=== PATIENT | male | born 1955 | race Caucasian/White ===

== ENCOUNTER 2020-04-25 08:04 | Outpatient (CLI) | payer BC, SELFPAY ==
--- NOTE | ~2020-04-25 | US_ITS ---
EXAMINATION: US art doppler w press LE BI DATE: 04/25/2020 08:57 INDICATION: Right foot pain TECHNIQUE: Segmental pressures and plethysmographic and Doppler waveforms of the brachial and lower e xtremity arteries were obtained. COMPARISON: None. FINDINGS: Right and left brachial artery pressures of 162 mm Hg and 178 mm Hg, respectively, are concordant (no rmal difference <= 30 mmHg). The right and left high-thigh pressure indices were unable to be obtaine d due to inability to occlude the vessels. The right ankle-brachial index (NANO) was unable to be obtained due to inability to occlude the vessel s at the right ankle (normal >= 0.9-1). The right great toe-brachial index (TBI) is 0.56 (normal >= 0 .6-0.8). The right lower extremity segmental pressure gradients were unable to be obtained due to fazal bility to occlude the vessels throughout the right lower limb (normal gradients <= 20-30 mmHg between adjacent levels on the same leg or the same levels on the two legs). Arterial waveforms are triphasi c at the right common femoral, superficial and popliteal arteries and biphasic at the right posterior tibial and dorsalis pedis arteries with brisk systolic upstrokes throughout. The left NANO is at least 1.19 inability to occlude the left dorsalis pedis artery or more proximal ar teries also precluding assessment for segmental pressure gradients. The left TBI is 1.79. Arterial w aveforms are triphasic at the left common femoral, superficial and popliteal arteries and biphasic at the left posterior tibial and dorsalis pedis arteries with brisk systolic upstrokes throughout. IMPRESSION: 1. Arterial occlusive disease to the right lower limb with mildly decreased right TBI. 2. No significant arterial occlusive disease to the left lower limb with normal left NANO and TBI. Reviewed, dictated and finalized at location A. T MANAGER IMPRESSION: 1. Arterial occlusive disease to the right lower limb with mildly decreased rig ht TBI. 2. No significant arterial occlusive disease to the left lower limb with normal left NANO and TBI.
--- NOTE | ~2020-04-25 | XR_ITS ---
EXAMINATION: XR foot RT min 3V DATE: 04/25/2020 08:25 INDICATION: Right foot pain. TECHNIQUE: 4 views of right foot were obtained. COMPARISON: None. FINDINGS: Bone alignment is normal. No acute fracture. There are old healed fractures of some of the proximal phalanges. There is mild osteoarthritis of first metatarsophalangeal joint, third proximal i nterphalangeal joint, and talonavicular joint. There are enthesophytes at the posterior and plantar a spects of calcaneal tuberosity. IMPRESSION: 1. Mild polyarticular osteoarthritis. Reviewed, dictated and finalized at location B. NATOR MAKER
== END 2020-04-25 08:05 | disposition home or self-care (01) ==
LOC: ANHIMG 08:10
PROVIDERS: PCP Internal Medicine; Visit Provider Internal Medicine
DX: M79.671 Pain in right foot (principal); M19.071 Primary osteoarthritis, right ankle and foot
CPT/HCPCS: 73630; 93923

== ENCOUNTER 2020-05-24 07:12 | Outpatient (CLI) | payer BC, SELFPAY ==
--- NOTE | ~2020-05-24 | NM_ITS ---
EXAMINATION: NM elliot stress w perfusion DATE: 05/24/2020 10:30 INDICATION: Dyspnea on exertion TECHNIQUE: Rest images were obtained following intravenous administration of 10.6 mCi Tc99m tetrofosm in (Myoview). The patient was infused intravenously with Lexiscan (Regadenoson). Then, 30.5 mCi Tc99m tetrofosmin (Myoview) was administered intravenously, and stress images were obtained in supine posi tion. Additional stress images were obtained in prone position. Data was reconstructed into short axi s and horizontal and vertical long axis SPECT images. Gated SPECT images were also obtained. COMPARISON: None. FINDINGS: There is a fixed perfusion defect, moderate severity at the apex and mild on the inferoapic al and mid inferior segments consistent with infarct. No reversible ischemia. There is left ventricu lar enlargement with calculated end-diastolic volume of 217 mL. There is global hypokinesis with mild to moderately decreased left ventricular ejection fraction which measures 35%. IMPRESSION: 1. Nonreversible perfusion defect moderate severity at the apex and mild at the apical inferior and m id inferior segments. No reversible ischemia. 2. Left ventricular enlargement with mild to moderately decreased left ventricular ejection fraction measuring 35%. Reviewed, dictated and finalized at location A. TH SCIENCE WRITER IMPRESSION: 1. Nonreversible perfusion defect moderate severity at the apex and mild at the apical inferior and mid inferior segments. No reversible ischemia. 2. Left ventricular enlargement with mild to moderately decreased left ventricu lar ejection fraction measuring 35%.
--- NOTE | 2020-05-24 07:56 | EST_ITS ---
Patient Info Name: Karlo Hilario Age: 64 years : 1955 Gender: Male Ht: 72 in Wt: 235 lbs BSA: 2.36 m2 HR: 71 bpm BP: 168 / 86 mmHg Exam Date: 05/24/2020 8:41 AM Exam Location: [facility] Stress Patient Status: Outpatient Admit Date: 05/24/2020 Staff Ordering Physician: Bryan Acharya DO Attending Provider: Bryan Acharya DO Exercise Technologist: Kailey Musa RDCS Exercise Physician: Bryan Acharya DO Exam Type: CA stress elliot w NM Study Info Indications R06.00 - Dyspnea, unspecified A regadenoson stress test was performed. Summary 1. 1. Negative lexiscan stress test for ischemic ST changes by ECG criteria. 2. 2. Baseline hypertension. 3. 3. Nuclear scan to follow and will be reported separately. Please correlate with it. 4. 4. Patient informed of the above results. Protocol: Lexiscan Stress ECG Details Stage: REST Duration (min): 0 min : 17 sec HR (bpm): --- SBP (mmHg): --- DBP (mmHg): --- Stage: REST Duration (min): 2 min : 58 sec HR (bpm): 71 SBP (mmHg): 168 DBP (mmHg): 85 Stage: REST Duration (min): 10 min : 43 sec HR (bpm): 72 SBP (mmHg): 168 DBP (mmHg): 85 Stage: STAGE 1 Duration (min): 1 min : 0 sec HR (bpm): 94 SBP (mmHg): 183 DBP (mmHg): 70 Stage: RECOVERY Duration (min): 1 min : 0 sec HR (bpm): 101 SBP (mmHg): 183 DBP (mmHg): 70 Stage: RECOVERY Duration (min): 2 min : 0 sec HR (bpm): 98 SBP (mmHg): 195 DBP (mmHg): 88 Stage: RECOVERY Duration (min): 3 min : 0 sec HR (bpm): 93 SBP (mmHg): 184 DBP (mmHg): 83 Stage: RECOVERY Duration (min): 3 min : 18 sec HR (bpm): 93 SBP (mmHg): 184 DBP (mmHg): 83 Rest HR: 72 bpm Peak HR: 101 bpm Rest Sys BP: 168 mmHg Peak Sys BP: 195 mmHg Max Pred HR: 157 bpm % Max Pred HR: 64 % Target HR: 133 bpm Max RPP: 19,695 bpm*mmHg Termination Reason: Completed protocol Total Time: 1 min : 0 sec Rest Dawkins BP: 85 mmHg Peak Dawkins BP: 88 mmHg Total Dose: 0.4 mg Resting ECG Sinus rhythm, first degree AV block, LAFB. Stress ECG No ST changes. Arrhythmias None. Report Signatures
== END 2020-05-24 07:13 | disposition home or self-care (01) ==
LOC: ANHCARD 07:15
PROVIDERS: PCP Internal Medicine; Visit Provider Internal Medicine Cardiovascular Disease
DX: R06.00 Dyspnea, unspecified (principal)
CPT/HCPCS: 78452; 93017; A9502; J2785

== ENCOUNTER 2020-05-27 07:21 | Outpatient (CLI) | payer BC, SELFPAY ==
--- NOTE | 2020-05-27 07:41 | ECHO_ITS ---
Patient Info Name: Karlo Hilario Age: 64 years : 1955 Gender: Male Ht: 72 in Wt: 235 lbs BSA: 2.36 m2 HR: 73 bpm BP: 168 / 95 mmHg Technical Quality: Good Exam Date: 05/27/2020 8:19 AM Exam Location: [facility] Patient Status: Outpatient Admit Date: 05/27/2020 Staff Ordering Physician: Bryan Acharya DO Planer Setter: Christo Glaser RDCS, RT Attending Provider: Bryan Acharya DO Referring Physician: Marck OTTO; Exam Type: CA echo doppler color flow Study Info Indications R94.31 - Abnormal electrocardiogram ECG EKG Z01.818 - Encounter for other preprocedural examination Complete two-dimensional, color flow and Doppler transthoracic echocardiogram is performed. Strain analysis performed. Summary 1. Complete two-dimensional, color flow and Doppler transthoracic echocardiogram is performed. 2. Left ventricular chamber dimension is moderately enlarged. 3. Left ventricular systolic function is moderately reduced, estimated at 35-40%. 4. There is mildly increased left ventricular wall thickness. 5. The left ventricular diastolic function is grade I diastolic dysfunction. 6. E/e' 8 is minimally elevated. 7. Global longitudinal strain is abnormal at -12.1%. 8. Left atrial chamber dimension is mildly enlarged. 9. There is mild aortic valve regurgitation. 10. The mitral valve has mildly thickened leaflets. 11. There is moderate mitral valve regurgitation. 12. There is trace tricuspid valve regurgitation. 13. There is trace pulmonic regurgitation. 14. Dilated inferior vena cava with >50% collapse upon inspiration consistent with elevated right atrial pressure, 10 mmHg. Left Ventricle E/e' 8 is minimally elevated. Global longitudinal strain is abnormal at -12.1%. Left ventricular chamber dimension is moderately enlarged. Left ventricular systolic function is moderately reduced, estimated at 35-40%. There is mildly increased left ventricular wall thickness. The left ventricular diastolic function is grade I diastolic dysfunction. Right Ventricle Right ventricular chamber dimension is normal. Right ventricular systolic function is normal. Left Atria Left atrial chamber dimension is mildly enlarged. Right Atria Right atrial chamber dimension is normal. Aortic Valve The aortic valve is trileaflet. There is no aortic valve stenosis. There is mild aortic valve regurgitation. Pulmonic Valve There is trace pulmonic regurgitation. Mitral Valve The mitral valve has mildly thickened leaflets. There is no mitral valve stenosis. There is moderate mitral valve regurgitation. Tricuspid Valve There is trace tricuspid valve regurgitation. RVSP is not calculated due to an inadequate TR jet. Pericardium/Pleural There is no pericardial effusion. Inferior Vena Cava Dilated inferior vena cava with >50% collapse upon inspiration consistent with elevated right atrial pressure, 10 mmHg. Aorta The aortic root size at the sinus of Valsalva is normal. Left Ventricular Outflow Tract Name Value Normal LVOT 2D LVOT Diameter 2.1 cm LVOT Doppler LVOT Peak Gradient 4 mmHg
== END 2020-05-27 07:22 | disposition home or self-care (01) ==
PROVIDERS: PCP Internal Medicine; Visit Provider Internal Medicine Cardiovascular Disease
DX: R06.00 Dyspnea, unspecified (principal); I34.1 Nonrheumatic mitral (valve) prolapse
CPT/HCPCS: 93306

== ENCOUNTER 2020-10-28 13:31 | Outpatient (CLI) | payer BC, SELFPAY ==
--- NOTE | 2020-10-28 13:47 | ECHO_ITS ---
Patient Info Name: Karlo Hilario Age: 65 years : 1955 Gender: Male Ht: 72 in Wt: 240 lbs BSA: 2.38 m2 HR: 70 bpm BP: 142 / 70 mmHg Technical Quality: Good Exam Date: 10/28/2020 2:06 PM Exam Location: [facility] Patient Status: Outpatient Admit Date: 10/28/2020 Staff Ordering Physician: Bryan Acharya DO Prescription Benefit Specialist: Cecy Mendoza RDCS Attending Provider: Bryan Acharya DO Referring Physician: Marck OTTO; Exam Type: CA echo doppler color flow Study Info Indications - chf systolic heart failure Complete two-dimensional, color flow and Doppler transthoracic echocardiogram is performed. Summary 1. Complete two-dimensional, color flow and Doppler transthoracic echocardiogram is performed. 2. Left ventricular chamber dimension is normal. 3. Left ventricular systolic function is mildly reduced, estimated at 45-50%. 4. There is mildly increased left ventricular wall thickness. 5. The left ventricular diastolic function is grade I diastolic dysfunction. 6. E/e' 15 is elevated. 7. Global longitudinal strain is abnormal at -15.1%. 8. Left atrial chamber dimension is moderately enlarged. 9. Right atrial chamber dimension is mildly enlarged. 10. There is trace aortic valve regurgitation. 11. There is mild mitral valve regurgitation. 12. No pulmonary hypertension, estimated pulmonary arterial systolic pressure is 28 mmHg. 13. There is trace pulmonic regurgitation. Left Ventricle E/e' 15 is elevated. Global longitudinal strain is abnormal at -15.1%. Left ventricular chamber dimension is normal. Left ventricular systolic function is mildly reduced, estimated at 45-50%. There is mildly increased left ventricular wall thickness. The left ventricular diastolic function is grade I diastolic dysfunction. Right Ventricle Right ventricular chamber dimension is normal. Right ventricular systolic function is normal. Left Atria Left atrial chamber dimension is moderately enlarged. Right Atria Right atrial chamber dimension is mildly enlarged. Aortic Valve The aortic valve is trileaflet. There is no aortic valve stenosis. There is trace aortic valve regurgitation. Pulmonic Valve There is trace pulmonic regurgitation. Mitral Valve There is no mitral valve stenosis. There is mild mitral valve regurgitation. Tricuspid Valve There is no tricuspid valve regurgitation. No pulmonary hypertension, estimated pulmonary arterial systolic pressure is 28 mmHg. Pericardium/Pleural There is no pericardial effusion. Inferior Vena Cava Dilated inferior vena cava with >50% collapse upon inspiration consistent with normal right atrial pressure, 5 mmHg. Aorta The aortic root size at the sinus of Valsalva is normal. Left Ventricular Outflow Tract Name Value Normal LVOT 2D LVOT Diameter 2.1 cm LVOT Doppler LVOT Peak Gradient 4 mmHg LVOT Mean Gradient 3 mmHg LVOT VTI 22 cm LVOT VTI/AV VTI Ratio 0.6 LVOT Stroke Volume 78 ml
== END 2020-10-28 13:32 | disposition home or self-care (01) ==
LOC: ANHCARD 13:35
PROVIDERS: PCP Family Medicine; Visit Provider Internal Medicine Cardiovascular Disease
DX: I50.20 Unspecified systolic (congestive) heart failure (principal); I34.0 Nonrheumatic mitral (valve) insufficiency
CPT/HCPCS: 93306

== ENCOUNTER 2021-05-26 07:38 | Outpatient (CLI) | payer OTHER, SELFPAY ==
--- NOTE | 2021-05-26 07:49 | ECHO_ITS ---
Patient Info Name: Karlo Hilario Age: 65 years : 1955 Gender: Male Ht: 72 in Wt: 238 lbs BSA: 2.37 m2 HR: 75 bpm BP: 155 / 80 mmHg Heart Rhythm: Sinus Rhythm Technical Quality: Good Exam Date: 05/26/2021 8:03 AM Exam Location: [facility] Pulmonary Patient Status: Outpatient Admit Date: 05/26/2021 Staff Ordering Physician: Bryan Acharya DO Windows Vmware Administrator: Kailey Musa RDCS Attending Provider: Bryan Acharya DO Referring Physician: Marck OTTO; Exam Type: CA echo doppler color flow Study Info Indications I50.20 - Unspecified systolic (congestive) heart failure Complete two-dimensional, color flow and Doppler transthoracic echocardiogram is performed. Strain analysis performed. Summary 1. Complete two-dimensional, color flow and Doppler transthoracic echocardiogram is performed. 2. Left ventricular chamber dimension is mildly enlarged. 3. Left ventricular systolic function is mildly reduced, estimated at 45-50%. 4. There is mildly increased left ventricular wall thickness. 5. Left ventricular septal wall motion is abnormal with septal motion related to bundle branch block. 6. The left ventricular diastolic function is grade I diastolic dysfunction. 7. E/e' 15 is elevated. 8. Global longitudinal strain is abnormal at -12.1%. 9. Left atrial chamber dimension is mildly enlarged. 10. There is mild aortic valve regurgitation. 11. There is trace mitral valve regurgitation. 12. There is trace pulmonic regurgitation. Left Ventricle E/e' 15 is elevated. Global longitudinal strain is abnormal at -12.1%. Left ventricular chamber dimension is mildly enlarged. Left ventricular systolic function is mildly reduced, estimated at 45-50%. There is mildly increased left ventricular wall thickness. Left ventricular septal wall motion is abnormal with septal motion related to bundle branch block. The left ventricular diastolic function is grade I diastolic dysfunction. Right Ventricle Right ventricular systolic function is normal and with normal TAPSE 2.4 cm. Right ventricular chamber dimension is normal. Left Atria Left atrial chamber dimension is mildly enlarged. Right Atria Right atrial chamber dimension is normal. Aortic Valve The aortic valve is trileaflet. There is no aortic valve stenosis. There is mild aortic valve regurgitation. Pulmonic Valve There is trace pulmonic regurgitation. Mitral Valve There is no mitral valve stenosis. There is trace mitral valve regurgitation. Tricuspid Valve There is no tricuspid valve regurgitation. Pericardium/Pleural There is no pericardial effusion. Inferior Vena Cava Normal inferior vena cava with >50% collapse upon inspiration consistent with normal right atrial pressure, 5 mmHg. Aorta The aortic root size at the sinus of Valsalva is normal. Left Ventricular Outflow Tract Name Value Normal LVOT 2D LVOT Diameter 2.3 cm LVOT Doppler LVOT Peak Gradient 3 mmHg LVOT Mean Gradient 1 mmHg LVOT VTI 16 cm LVOT VTI/AV VTI Ratio
== END 2021-05-26 07:39 | disposition home or self-care (01) ==
PROVIDERS: PCP Family Medicine; Visit Provider Internal Medicine Cardiovascular Disease
DX: I50.20 Unspecified systolic (congestive) heart failure (principal); I35.1 Nonrheumatic aortic (valve) insufficiency
CPT/HCPCS: 93306

== ENCOUNTER 2021-07-24 09:15 | Outpatient (RCR) | payer OTHER, SELFPAY ==
[2021-06-29 07:49] VITALS: BMI 31.4
[2021-06-29 14:16] VITALS: BMI 31.4
[2021-06-29 14:17] VITALS: BMI 31.4
== END 2021-09-18 09:17 | disposition home or self-care (01) ==
LOC: ANHDMC 09:15
PROVIDERS: PCP Family Medicine; Visit Provider Family Medicine
DX: E11.9 Type 2 diabetes mellitus without complications (principal); Z71.3 Dietary counseling and surveillance; Z71.89 Other specified counseling
CPT/HCPCS: 97802; G0108

== ENCOUNTER 2021-12-13 01:41 | Day surgery (SDC) | payer OTHER, SELFPAY ==
[2021-11-30 11:53] VITALS: BMI 32.5
[2021-12-13 06:20] VITALS: BP 152/82; PULSE 76; RESP 20; TEMP 36.3; O2SAT 99
[2021-12-13] MEDS: LACTATED RINGERS 1,000 ML 150 ML IV CONT (06:30)
[2021-12-13 06:34] LABS: Glucose Point of Care 137 mg/dl (65-105)
--- NOTE | 2021-12-13 07:20 | WPDANESEPPF ---
Anes - Initial Pre Proc Eval Procedure: Operation Date: 12/13/21 07:30 Proposed Procedures p Screening Colonoscopy - Yahir lAexander MD Date/Time: 12/13/21 07:20 Surgeon: Yahir Alexander MD Pre Op Diagnosis: hx of colon polyps Patient Data Age: 66 Gender: M Height: 1.83 m Weight: 101.5 kg Last Vital Signs Temp 97.4 F L 12/13/21 06:20 Pulse 76 12/13/21 06:20 Resp 20 12/13/21 06:20 BP 152/82 H 12/13/21 06:20 Pulse Ox 99 12/13/21 06:20 O2 Del Method Room Air 12/13/21 06:20 Allergies Allergy/AdvReac Type Severity Reaction Status Date / Time No Known Allergies Allergy Verified 12/13/21 06:19 Home Medications Medication Instructions Recorded Confirmed Type omega-3 fatty acids 1,000 mg 1,000 mg PO BID 05/31/20 11/30/21 History capsule (Fish Oil Concentrate) blood sugar diagnostic (Contour See Rx Instructions .Route 05/05/21 11/30/21 Rx Next Test Strips) .COMPLEX #60 ea lisinopril 5 mg tablet See Rx Instructions .Route 06/21/21 11/30/21 Rx .COMPLEX #30 tabs carvedilol 12.5 mg tablet See Rx Instructions .Route 07/04/21 11/30/21 Rx .COMPLEX #60 tabs rosuvastatin 20 mg tablet See Rx Instructions .Route 08/04/21 11/30/21 Rx .COMPLEX #90 tabs semaglutide 0.25 mg or 0.5 mg (2 See Rx Instructions .Route 09/06/21 11/30/21 Rx mg/1.5 mL) subcutaneous pen .COMPLEX #2 mL injector (Ozempic) glimepiride 1 mg tablet 1 mg PO DAILY 11/30/21 11/30/21 History Laboratory Tests 12/13/21 06:24 POC Capillary Glucose 137 mg/dl H mg/dl (65-105) Patient hx anesthesia problems: none Family hx anesthesia problems: none Results Review: All pre-operative results and documents have been reviewed as part of the pre-operative evaluation. [facility] Past Medical History Medical History CAD (coronary artery disease) Dyslipidemia Peripheral vascular disease Personal history of malignant neoplasm of prostate Systolic heart failure Type 2 diabetes mellitus without complications Family History Family History Father Heart disease Mother Diabetes mellitus Hypertension Cerebrovascular accident Other Family history of coronary artery disease Malignant neoplasm of prostate Social History Social History Smoking status: Former smoker Second hand tobacco smoke exposure: No Smoking end date: 04/08/97 Alcohol intake: current Drinks per week: 2 Alcohol use details: beer Substance use: never Substance use type: does not use Living arrangements: with family Gender identity (if verbalized by the patient): Male Spiritual care concerns: No Agree to blood products: Yes Anes - Eval Final PreProcedure Day of Procedure 12/13/21 07:20 Patient weight: obese Heart: regular rate and rhythm Lungs: clear to auscultation Airway: Mallampati scale class II Neurological: alert and oriented Last oral intake: >/= 8 hours ASA classification: III Emergent: no Anesthetic plan: proceed Anesthesia type and monitoring: general GIVS Results Review: All pre-operative results and documents have been reviewed as part of the pre-operative evaluation. Informed Consent: The patient's anesthetic plan and its attendant risks and benefits were discussed with the patient/family/POA. Questions were solicited and answers provided to the satisfaction of the patient/family/POA.
--- NOTE | 2021-12-13 07:27 | PM.HPGS ---
History of Present Illness History of Present Illness Consent: Risks, benefits, and alternatives have been discussed and questions answered. Patient agrees to proceed with procedure. Chief complaint: hx of colon polyps Narrative: Karlo Hilario is a 66 year old male here for screening colonoscopy Review of Systems Constitutional: Constitutional: Denies headache(s) and Denies weakness Eyes: Eyes: Denies blurry vision ENT: Reports Normal hearing present, Denies headache(s) and Denies neck pain Cardiovascular: Cardiovascular: Denies chest pain and Denies dyspnea Respiratory: Respiratory: Denies dyspnea Gastrointestinal: Gastrointestinal: Reports no additional gastrointestinal complaints Genitourinary: Genitourinary: Denies dysuria Musculoskeletal: Musculoskeletal: Denies neck pain Integumentary/Breasts: Skin/Breast: Denies dry skin Neurologic: Reports Normal hearing present, Denies headache(s) and Denies weakness Psychiatric: Psychiatric: Denies anxiety Endocrine: Endocrine: Denies change in body appearance Hematologic/Lymphatic: Hematologic/Lymphatic: Denies easy bleeding Allergic/Immunologic: Allergic/Immunologic: Denies urticaria PMFSH Past Medical History Medical History (Updated 12/13/21 @ 07:27 by Yahir Alexander MD) CAD (coronary artery disease) Colon cancer screening Dyslipidemia Peripheral vascular disease Personal history of malignant neoplasm of prostate Systolic heart failure Type 2 diabetes mellitus without complications Family History Family History Father Heart disease Mother Diabetes mellitus Hypertension Cerebrovascular accident Other Family history of coronary artery disease Malignant neoplasm of prostate Social History Social History Smoking status: Former smoker Second hand tobacco smoke exposure: No Smoking end date: 04/08/97 Alcohol intake: current Drinks per week: 2 Alcohol use details: beer Substance use: never Substance use type: does not use Living arrangements: with family Gender identity (if verbalized by the patient): Male Spiritual care concerns: No Agree to blood products: Yes Meds Home Medications and Allergies Home Medications Medication Instructions Recorded Confirmed Type omega-3 fatty acids 1,000 mg 1,000 mg PO BID 05/31/20 11/30/21 History capsule (Fish Oil Concentrate) blood sugar diagnostic (Contour See Rx Instructions .Route 05/05/21 11/30/21 Rx Next Test Strips) .COMPLEX #60 ea lisinopril 5 mg tablet See Rx Instructions .Route 06/21/21 11/30/21 Rx .COMPLEX #30 tabs carvedilol 12.5 mg tablet See Rx Instructions .Route 07/04/21 11/30/21 Rx .COMPLEX #60 tabs rosuvastatin 20 mg tablet See Rx Instructions .Route 08/04/21 11/30/21 Rx .COMPLEX #90 tabs semaglutide 0.25 mg or 0.5 mg (2 See Rx Instructions .Route 09/06/21 11/30/21 Rx mg/1.5 mL) subcutaneous pen .COMPLEX #2 mL injector ([employer]) glimepiride 1 mg tablet 1 mg PO DAILY 11/30/21 11/30/21 History Allergies Allergy/AdvReac Type Severity Reaction Status Date / Time No Known Allergies Allergy Verified 12/13/21 06:19 Vital Signs Vital Signs - 24 hr 12/13/21 06:20 Temperature 97.4 F L Pulse Rate 76 Respiratory Rate 20 Blood Pressure 152/82 H Pulse Oximetry 99 Oxygen Delivery Room Air Exam Const: General: comfortable and no acute distress HENMT: General nose exam: Normal nares present Eyes: General: appearance normal, both eyes and all related structures Neck: Neck: no JVD Resp: Auscultation: clear to auscultation bilaterally Cardio: Rate: regular rate Rhythm: regular rhythm GI: Inspection: non-distended GI Palp: Yes Soft to palpation Skin: General skin exam: normal color Neuro: General: gait normal Speech: normal speech Extrem: General: normal to inspection Psych:
[2021-12-13 07:47] VITALS: BP 149/77; PULSE 65; RESP 17; O2SAT 97
[2021-12-13 07:57] VITALS: BP 131/81; PULSE 72; RESP 21; O2SAT 98
[2021-12-13 08:07] VITALS: BP 142/90; PULSE 64; RESP 20; O2SAT 97
== END 2021-12-13 08:14 | disposition home or self-care (01) ==
PROVIDERS: PCP Family Medicine; Visit Provider Internal Medicine Gastroenterology
PROC: 0DJD8ZZ Inspection of Lower Intestinal Tract, Via Natural or Artificial Opening Endoscopic (ICD-10-PCS; CPT 45378; principal; 2021-12-13 07:30)
DX: Z12.11 Encounter for screening for malignant neoplasm of colon (principal); D12.4 Benign neoplasm of descending colon; K64.8 Other hemorrhoids; I50.22 Chronic systolic (congestive) heart failure; I25.10 Atherosclerotic heart disease of native coronary artery without angina pectoris; E78.5 Hyperlipidemia, unspecified; E11.51 Type 2 diabetes mellitus with diabetic peripheral angiopathy without gangrene; I73.9 Peripheral vascular disease, unspecified; C61 Malignant neoplasm of prostate; Z87.891 Personal history of nicotine dependence
CPT/HCPCS: 45385; 82948; 88305; J2704; J7120

== ENCOUNTER 2023-04-24 13:29 | Outpatient (CLI) | payer OTHER, SELFPAY ==
--- NOTE | 2023-04-24 13:44 | ECHO_ITS ---
Patient Info Name: Karlo Hilario Age: 67 years : 1955 Gender: Male Ht: 72 in Wt: 234 lbs BSA: 2.35 m2 HR: 60 bpm BP: 140 / 82 mmHg Technical Quality: Fair Exam Date: 04/24/2023 1:51 PM Exam Location: Echo Lab Patient Status: Outpatient Admit Date: 04/24/2023 Staff Ordering Physician: Bryan Acharya DO Attending Provider: Bryan Acharya DO Referring Physician: Marck OTTO; Exam Type: CA echo dop color flow w con Study Info Indications - CHF Complete two-dimensional, color flow and Doppler transthoracic echocardiogram is performed. Summary 1. Complete two-dimensional, color flow and Doppler transthoracic echocardiogram is performed. 2. Left ventricular systolic function is mildly globally reduced, estimated at 45-50%. 3. There is mild concentric increased left ventricular wall thickness. 4. The left ventricular diastolic function is grade I diastolic dysfunction. 5. E/e' 9 is minimally elevated. 6. Global longitudinal strain is abnormal at -11.3%. 7. Left atrial chamber dimension is mildly enlarged. 8. There is mild aortic valve sclerosis. 9. There is mild aortic valve regurgitation. 10. There is mild mitral valve regurgitation. 11. There is trace tricuspid valve regurgitation. 12. There is trace pulmonic regurgitation. Left Ventricle E/e' 9 is minimally elevated. Global longitudinal strain is abnormal at -11.3%. Left ventricular systolic function is mildly globally reduced, estimated at 45-50%. There is mild concentric increased left ventricular wall thickness. The left ventricular diastolic function is grade I diastolic dysfunction. Right Ventricle Right ventricular systolic function is normal and with normal TAPSE 2.7 cm. Right ventricular chamber dimension is normal. Left Atria Left atrial chamber dimension is mildly enlarged. Right Atria Right atrial chamber dimension is normal. Aortic Valve The aortic valve is trileaflet. There is mild aortic valve sclerosis. There is no aortic valve stenosis. There is mild aortic valve regurgitation. Pulmonic Valve There is trace pulmonic regurgitation. Mitral Valve There is no mitral valve stenosis. There is mild mitral valve regurgitation. Tricuspid Valve RVSP is not calculated due to an inadequate TR jet. There is trace tricuspid valve regurgitation. Pericardium/Pleural There is no pericardial effusion. Inferior Vena Cava Normal inferior vena cava with >50% collapse upon inspiration consistent with normal right atrial pressure, 5 mmHg. Aorta The aortic root size at the sinus of Valsalva is normal. Left Ventricular Outflow Tract Name Value Normal LVOT 2D LVOT Diameter 1.98 cm LVOT Doppler LVOT Peak Velocity 97.56 cm/s LVOT Peak Gradient 4 mmHg LVOT Mean Gradient 2 mmHg LVOT VTI 18.02 cm LVOT VTI/AV VTI Ratio 0.60 LVOT Stroke Volume 55.52 ml LVOT CO 3.27 l/min LVOT CI 1.39 L/min/m2 Pulmonic Valve Name
== END 2023-04-24 13:30 | disposition home or self-care (01) ==
PROVIDERS: PCP Family Medicine; Visit Provider Internal Medicine Cardiovascular Disease
DX: I50.20 Unspecified systolic (congestive) heart failure (principal); I34.0 Nonrheumatic mitral (valve) insufficiency; I35.1 Nonrheumatic aortic (valve) insufficiency
CPT/HCPCS: 93306

== ENCOUNTER 2025-01-29 22:00 | Emergency (ER) | payer OTHER, SELFPAY ==
--- NOTE | ~2025-01-29 | CT_ITS ---
CT brain wo con HISTORY:syncopal episode COMPARISON: None. TECHNIQUE: Axial images were obtained of the head without intravenous contrast. FINDINGS: No acute intracranial hemorrhage, mass effect or midline shift. No extra-axial fluid collections. The calvarium is intact. Visualized paranasal sinuses and mastoid air cells are clear. IMPRESSION: No acute intracranial hemorrhage or extra axial fluid collections. All CT scans at this facility are performed using low dose modulation techniques as appropriate to perform exam including the following: automated exposure control; use of iterative reconstruction technique; adjustment of the mA and/or kV according to patient size (this includes techniques or standardized protocols for targeted exams where dose is matched to indication/reason for exam). Reviewed, dictated and finalized at location S. IMPRESSION: No acute intracranial hemorrhage or extra axial fluid collections. All CT scans at this facility are performed using low dose modulation techniqu es as appropriate to perform exam including the following: automated exposure c ontrol; use of iterative reconstruction technique; adjustment of the mA and/or kV according to patient size (this includes techniques or standardized protocol s for targeted exams where dose is matched to indication/reason for exam).
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
--- NOTE | ~2025-01-29 | XR_ITS ---
XR chest 2V HOSTORY: syncope COMPARISON:[ None] FINDINGS: Frontal and lateral views of the chest were obtained. The lungs are clear. The heart size is normal in size. Pulmonary vasculature is unremarkable. Osseous structures are intact. IMPRESSION: No acute lung findings.] [ ] Reviewed, dictated and finalized at location S.
[2025-01-29 21:57] VITALS: BP 180/78; PULSE 82; RESP 22; TEMP 36.7; O2SAT 97
--- NOTE | 2025-01-29 22:06 | ECG_ITS ---
Test Date: 2025-01-29 22:12:44 Measurements Intervals [place] Rate: 82 P: 71 FL: 280 QRS: -73 QRSD: 157 T: 73 QT: 410 QTc: 480 Interpretive Statements SINUS RHYTHM WITH FIRST DEGREE AV BLOCK RIGHT BUNDLE BRANCH BLOCK LEFT ANTERIOR FASCICULAR BLOCK LEFT VENTRICULAR HYPERTROPHY AND ST-T CHANGE BASELINE ARTIFACT- I, II, AVR, V1 ABNORMAL ECG No previous ECG available for comparison Electronically Signed On 01-30-2025 08:12:36 CDT by Bryan Acharya D.O.
--- OUTSIDE RECORDS SUMMARY | 2025-01-29 22:41 | XMS_ITS | Encounter Summary ---
Author Organization [facility] Address [address] 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 Name Role Phone Caroline Lyons DO Primary Care Provide r Encounter Details Date Type Department Care Team (Latest Contact Info) Description 07/13/2020 Transcribe Orders [facility] [address] [place] [address] Rahul Farooq MD [address] [place] [id number] Pre-op testing (Primary Dx) Social History Tobacco Use Types Packs/Day Years Used Date Smoking Tobacco: Former Cigarettes 1 26 0 07/14/1971 - 07/13/1997 Smokeless Tobacco: Never Alcohol Use Standard Drinks/Week Comments Yes 0 (1 standard drink = 0.6 oz pur e alcohol) RARELY Sex and Gender Information Value Date Recorded Sex Assigned at Not on file Legal Sex Male 8:34 AM CDT Gender Identity Not on file Sexual Orientation Not on file COVID-19 Exposure Response Date Recorded In the last month, have you been in contact with someone who was confirmed or suspected to have Coronavirus / COVID-19? No / Unsure 07/13/2020 10:55 AM CDT documented as of this encounter Plan of Treatment Not on file documented as of this encounter Results * TYPE AND SCREEN(REPEAT) (07/25/2020 8:27 AM CDT) ABO TYPING A 07/25/2020 11:58 AM CDT [facility]OD [facility] RH Positive 07/25/2020 11:58 AM CDT [facility] ABSC Negative 07/25/2020 11:58 AM CDT [facility] Blood Venipuncture / Unknown 07/25/2020 8:27 AM CDT 07/25/2020 9:50 AM CDT us Rahul Farooq MD BLOOD BANK ORDERABLES Ed ited Result - Final [facility] BLOOD [facility] [address] [place] [address] * SARS-COV-2 BY MOLECULAR (07/25/2020 8:27 AM CDT) SARSCOV2 NOT DETECTED (Referen ce Range for this test is Not Detected ) [facility] FA[facility] DX 07/25/2020 11:09 PM CDT [facility] Comment:This test was perfor med by a RT-PCR method. Other NASOPHARYNGEAL STRUCTURE / Unknown Non-Phlebotomy Collection / Unknown 07/25/2020 8:27 AM CDT 07/25/2020 9:45 AM CDT Narrative [facility] - 07/25/2020 11:09 PM CDT Authorized Fact Sheets about this test for providers and patients are available at: https://www.fda.gov/medical-devices/ugszkspvf-iijlmpneek-tycnbvu-devices/emergen -us e-authorizations us Rahul Farooq MD MICROBIOLOGY - GENERAL O RDERABLES Final Result [facility] [address] [place] [address], [place] documented in this encounter Visit Diagnoses Diagnosis Pre-op testing- Primary Preoperative examination, unspecified documented in this encounter Care Teams Oil Pump Station Operator Chief Relationship Specialty Start Date End Date Caroline Lyons DO [address] [place] [id number] PCP - General Family Medicine 07/25/20 documented as of this encounter
--- OUTSIDE RECORDS SUMMARY | 2025-01-29 22:41 | XMS_ITS | Clinical Summary ---
Author Organization [facility] Address [address] [place] [address] Phone Care Team Providers Care Property Adjuster Name Role Phone Caroline Lyons DO Primary Care Provide r Allergies No known active allergies Medications Perindopril Erbumine 8 MG Tablet Take 8 mg by mouth daily. Active rosuvastatin (CRESTOR) 20 MG Tablet Take 20 mg by mouth daily. Active Semaglutide (OZEMPIC, 0.25 OR 0.5 MG/DOSE, SC) 0.25 mg by Subcutaneous route once a week. SUNDAYS Active SITagliptin-met FORMIN (JANUMET) 50-1000 MG Tablet Take 1 Tablet by mouth daily. Active [place]-3 1000 MG Capsule Take 1,000 mg by mouth 2 times daily. Active carvedilol (COREG) 6.25 MG Tablet Take 6.25 mg by mouth 2 times daily. Active lisinopril (PRINIVIL, ZESTRIL) 5 MG Tablet Take 5 mg by mouth daily. Active aspirin 325 MG Tablet Take 1 Tablet by mouth daily. 100 Tablet 1 Active HYDROcodone-ger taminophen (NORCO) 10-325 MG Tablet Take 1-2 Tablets by mouth every 6 hours as needed for Moderate or more severe pain. 30 Tablet 1 Active Active Problems Problem Noted Date Diagnosed Date Degenerative arthritis of left knee 07/28/2020 Family History Medical History Relation Name Comments Cancer Father PROSTATE Diabetes Mother Hypertension Mother Stroke Mother Relation Name Status Comments Father Mother Social History Tobacco Use Types Packs/Day Years [...] on file Sexual Orientation Not on file Last Filed Vital Signs Vital Sign Reading Time Taken Comments Blood Pressure 111/62 07/28/2020 4:25 PM CDT Pulse 65 07/28/2020 4:25 PM CDT Temperature 36.6 C (97.8 F) 07/28/2020 4:25 PM CDT Respiratory Rate 18 07/28/2020 4:25 PM CDT Oxygen Saturation 95% 07/28/2020 4:25 PM CDT Inhaled Oxygen Concentration - - Weight 106.6 kg (235 lb) 07/28/2020 7:40 AM CDT Height 182.9 cm (6') 07/28/2020 7:40 AM CDT Body Mass Index 31.87 07/28/2020 7:40 AM CDT Plan of Treatment Health Maintenance Due Date Last Done Comments Hepatitis C Virus (HCV) Screening 1955 TdaP Immunization 1955 Cologuard 2001 Colonoscopy 2001 Colorectal Cancer Screening 2001 Immunochemical Fecal Occult Blood 2001 Pneumococcal Immunization (5 0+ years) (1 of 1 - PCV) 2006 Zoster Immunization (1 of 2) 2006 Influenza Immunization (#1) 2024 02/02/2020 SARS-COV-2 Immunization (3 - 2024- season) 2024 03/22/2021, 06/10/2020 Respiratory Syncytial Virus (RSV) Immunization (Adult) (1 - 1-dose 75+ series) 2031 Hepatitis B Immunization Aged Out No longer eligible based on patient's age to complete this topic Human Papillomavirus (HPV) Immunization Aged Out No longer eligible b ased on patient's age to complete this topic Meningococcal Immunization (ACWY) Aged Out No longer eligible b ased on patient's age to complete this topic Rotavirus Immunization Aged Out No lo nger eligible based on patient's age to complete this topic Medical Devices Implanted Type Area Rn Intake Device Identifier Shelf Expiration Date Model / Serial / Lot Injector Bone Cement 1x40 W/Gentamicin - [id number] Implanted:Qty : 1 on 07/28/2020 by Rahul Farooq MD at [facility] IMPLANT Left: Knee [employer] 12/06/2020 [id number] / [id number] / [id number] Converse Partial Knee System Left Medial Tibial Tray Implanted:Qty : 1 on 07/28/2020 by Rahul Farooq MD at [facility] Left: Knee [employer] 03/08/2030 [id number] / [id number] / [id number] Converse Partial Knee System Twin Peg Femoral Implanted:Qty : 1 on 07/28/2020 by Rahul Farooq MD at [facility] Left: Knee [employer] 02/04/2030 [id number] / [id number] / [id number] Converse Partial Knee System Anatomic Meniscal Bearing Implanted:Qty : 1 on 07/28/2020 by Rahul Farooq MD at [facility] Left: Knee [employer] / [employer] 02/27/2024 [id number] / [id number] / [id number] Insurance [facility] Care Teams Property Adjuster Relationship Specialty Start Date End Date Caroline Lyons DO [address] [place] [id number] PCP - General Family Medicine 07/25/20
--- NOTE | 2025-01-29 22:52 | ED_ITS ---
HPI - Syncope General Chief Complaint: Syncope Stated Complaint: syncope Time Seen by Provider: 01/29/25 22:32 Source: patient and family Mode of arrival: EMS Limitations: no limitations History of Present Illness HPI narrative: This is a 69-year-old male with history of hypertension, diabetes, hyperlipidemia CAD who presents to the ED for syncopal episode. Patient states that he was at a football game sitting in the bleachers and was apparently very exciting game when he became lightheaded and passed out falling forward on the step below. He believes he was only out for few seconds. He was evaluated by EMS and apparently had a 2nd episode where he became bradycardic and passed out for less than a 2nd. He has never had this before. Denies chest pain, shortness of breath, lightheadedness, recent illnesses. No new medications. Related Data Home Medications ?Medication ?Instructions ?Recorded ?Confirmed ?Last Taken ?Type niacin 500 mg tablet 500 mg PO BID 05/29/2310/27 Unknown History omega 4-xtz-wvt-fish oil 1,000 mg 2 cap PO BID 4 10/27/24 Unknown History (120 mg-180 mg) capsule (Fish Oil) sildenafil 100 mg tablet mg PO 07/22/24 10/27/24 Unkn own History Allergies Allergy/AdvReac Type Severity Reaction Status Date / Time No Known Allergies Allergy Verified 10/27/24 10:02 Review of Systems 2 Review of Systems: Gen.: Denies fevers or chills Eyes: Denies eye pain or visual change ENT: Denies congestion Respiratory: Denies shortness of breath or cough CV: Denies chest pain or palpitations GI: Denies abdominal pain nausea, emesis or diarrhea denies burning, urgency, frequency or hematuria Musculoskeletal: Denies back pain or muscle pain Neuro: Denies numbness, tingling, weakness or focal weakness Skin: Denies rash Except as documented, all other systems reviewed and negative [facility] Past Medical History Medical History (Updated 01/30/25 @ 02:58 by Aristeo [place] MD) GERD (gastroesophageal reflux disease) Hypertension Diabetes mellitus with nephropathy Diabetes Diabetic retinopathy Overactive bladder Hypertriglyceridemia Colon cancer screening CAD (coronary artery disease) Systolic heart failure Dyslipidemia Peripheral vascular disease Personal history of malignant neoplasm of prostate Type 2 diabetes mellitus without complications Surgical History Surgical History (Updated 07/29/24 @ 12:51 by Guillermina Pandya PA-C) H/O right knee surgery Hx of colonoscopy Family History Family History Father Heart disease Mother Diabetes mellitus Hypertension Cerebrovascular accident Other Family history of coronary artery disease Malignant neoplasm of prostate Social History Social History Smoking status: Former smoker Second hand tobacco smoke exposure: No Smoking end date: 04/08/97 Alcohol intake: current Drinks per week: 2 Alcohol use details: beer Substance use: never Substance use type: does not use Current Housing: Decline to Answer Concerned About Future Housing: Decline to Answer Difficulty Paying Gas/Electric Bills: Decline to Answer Difficulty Paying for Meds: Decline to Answer Currently Unemployed: Decline to Answer Education: Decline to Answer Difficulty w/ Childcare or Family Care: Decline to Answer Living arrangements: with family Occupation/Education: occupation Gender identity (if verbalized by the patient): Male Spiritual care concerns: No Agree to blood products: Yes Course Vital Signs Vital signs: Vital Signs Temperature 98.0 F 01/29/25 21:57 Pulse Rate 82 01/29/25 21:57 Respiratory Rate 22 H 01/29/25 21:57 Blood Pressure 180/78 H 01/29/25 21:57 Pulse Oximetry 97 01/29/25 21:57 Oxygen Delivery Room Air 01/29/25 21:57 Temperature 98.0 F 01/29/25 21:57 Pulse Rate 75 01/30/25 03:41 Respiratory Rate 18 01/30/25 03:41 Blood Pressure 160/76 H 01/30/25 03:41 Pulse Oximetry 99 01/30/25 03:41 Oxygen Delivery Room Air 01/29/25 21:57 MDM - Syncope MDM Narrative Medical decision making narrative: 69-year-old male presenting for syncopal episode. On initial evaluation, patient was in no acute distress, afebrile, hemodynamically stable. Heart and lungs clear. Abdomen soft and nontender. Nonfocal neuro exam. CBC and CMP were without significant abnormalities. Troponin negative. D-dimer negative. Repeat troponin negative. Chest x-ray showed no acute process. CT head and facial bones showed no acute process. Patient's EKGs and labs are without significant high risk changes. Cardiac risk factors reviewed. Patient is felt likely low risk for ACS and reasonable for further risk stratification testing as an outpatient. Pain was not sudden or maximal in onset without tearing or ripping quality. No other signs of symptoms suggest aortic dissection. A low-risk Wells criteria is noted, PE is felt to be unlikely. No pneumonia seen on evaluation today. Patient is felt to be a reasonable candidate for continued evaluation as an outpatient Differential Diagnosis Differential diagnosis: Likely syncope due to orthostatic hypotension, vasovagal syncope, pulmonary embolism and dehydration Medical Records Attestation: I reviewed the patient's medical records. Lab Data Attestation: I reviewed the patient's lab results. 01/29/25 22:53 01/29/25 22:53 Labs: Lab Results 01/29/25 01/29/25 01/30/25 Range/Units 22:41 22:53 02:04 WBC 8.1 (4.5-10.0) K/mm3 RBC 5.17 (4.6-6.20) M/mm3 Hgb 15.2 (14.0-18.0) g/dL Hct 45.4 (42.0-52.0) % MCV 87.8 (80-100) fl MCH 29.4 (26-34) pg MCHC 33.5 (32-36) g/dl RDW 14.0 (11.5-14.5) % Plt Count 297 (150-375) k/mm3 MPV 10.2 (7.4-10.4) fl Immature Gran % (Auto) 0.4 (0-0.5) % Neut % (Auto) 75.5 H (45.5-73.1) % Lymph % (Auto) 15.6 L (18.3-44.2) % [place] % (Auto) 7.1 (2.6-8.5) % Eos % (Auto) 1.0 (0-4.4) % Baso % (Auto) 0.4 (0.2-1.2) % Lymph # (Auto) 1.27 (0.9-3.2) K/mm3 [place] # (Auto) 0.6 (0.1-0.6) K/mm3 Eos # (Auto) 0.1 (0-0.3) K/mm3 Baso # (Auto) 0.0 (0.0-0.1) K/mm3 Abs Immat Gran (auto) 0.03 (0.00-0.031) K/mm3 Absolute Neuts (auto) 6.2 (1.3-6.7) K/mm3 Absolute Nucleated RBC 0.000 (0.0-0.012) K/mm3 Nucleated RBC % 0.0 (0.0-0.2) % D-Dimer 0.43 (<0.48) ug/mL Sodium 139 (137-145) mmol/L Potassium 4.0 (3.4-5.0) mmol/L Chloride 104 (98-107) mmol/L Carbon Dioxide 27 (22-30) mmol/L Anion Gap 8 (4-12) mmol/L BUN 14 (9-20) mg/dL Creatinine 1.06 (0.7-1.3) mg/dL Estim Creat Clear Calc 73 ml/min Estimated GFR > 60 (59 - ) Glucose 148 H (65-110) mg/dL Calcium 9.4 (8.4-10.2) mg/dL Magnesium 2.0 (1.6-2.3) mg/dL Total Bilirubin 0.6 (0.2-1.3) mg/dL AST 64 H (17-59) U/L ALT 72 H (6-50) U/L Alkaline Phosphatase 50 (38-126) U/L Troponin I 0.019 0.019 (0.000-0.034) ng/mL Total Protein 7.4 (6.3-8.2) g/dL Albumin 4.5 (3.5-5.1) g/dL Imaging Data My impression: Chest x-ray: Normal cardiac silhouette, no consolidations, no pleural effusions, no pulmonary vascular congestion Radiologist's impression: Impressions Head CT 01/29/25 22:27 IMPRESSION: No acute intracranial hemorrhage or extra axial fluid collections. All CT scans at this facility are performed using low dose modulation techniques as appropriate to perform exam including the following: automated exposure control; use of iterative reconstruction technique; adjustment of the mA and/or kV according to patient size (this includes techniques or standardized protocols for targeted exams where dose is matched to indication/reason for exam). Head/Cervical Spine/Facial Bones CT 01/29/25 22:28 IMPRESSION: No acute fracture or subluxation. All CT scans at this facility are performed using low dose modulation techniques as appropriate to perform exam including the following: automated exposure control; adjustment of the mA and/or kV according to patient size (this includes techniques or standardized protocols for targeted exams where does is matched to indication/reason for exam; i.e. extremities or head); use of iterative reconstruction technique). Chest X-Ray 01/29/25 22:41 IMPRESSION: No acute lung findings.] [ ] ECG Data EKG #1: Attestation: I personally reviewed and interpreted this ECG as follows: ECG completion date: 01/29/25 ECG completion time: 22:12 Interpretation: Sinus rhythm rate of 82, first-degree AV block, right bundle-branch block, left anterior fascicular block, no acute ST or T-wave changes. Comparison from 2020: Right bundle branch block is new EKG #2: Attestation: I personally reviewed and interpreted this ECG as follows: ECG completion date: 01/30/25 ECG completion time: 02:11 Interpretation: Normal sinus rhythm rate of 71, right bundle-branch block, left axis deviation, no acute ST or T-wave changes. No significant change from earlier Discharge Plan Discharge Clinical Impression: Syncope Qualifiers: Syncope type: vasovagal syncope Qualified Code(s): R55 - Syncope and collapse Patient Disposition: Home Condition: Stable Instructions: Antibiotic Form, Syncope (ED) Additional Instructions: Labs, EKG, chest x-ray were obtained and were all reassuring that there is no cardiac damage at this time. Given your history, you likely had a vasovagal syncope episode likely due to the emotionally charged atmosphere. You may have had an arrhythmia causing some of her symptoms, so your ordered a Holter monitor which she should lease picker on Saturday. 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 Return to the ED for any new or worsening symptoms. Patient Language: Congolese Prescriptions: No Action (DME) pen needle, diabetic [Easy Comfort Pen Scammon] 32 gauge x 5/32 needle See Rx Instructions .Route Qty: 30 0RF Rx Instructions: As directed use 1x/week sildenafil 100 mg tablet PO niacin 500 mg tablet 500 mg PO BID omega 2-vbg-eto-fish oil [Fish Oil] 1,000 mg (120 mg-180 mg) capsule 2 cap PO BID fenofibrate 160 mg tablet See Rx Instructions .ROUTE .COMPLEX Qty: 90 2RF Dose Instruction: Take 1 tablet by mouth once daily Rx Instructions: Take 1 tablet by mouth once daily carvedilol 12.5 mg tablet See Rx Instructions .ROUTE .COMPLEX Qty: 180 2RF Dose Instruction: TAKE 1 TABLET BY MOUTH EVERY 12 HOURS WITH A MEAL Rx Instructions: TAKE 1 TABLET BY MOUTH EVERY 12 HOURS WITH A MEAL Contour Next Test Strips Strip See Rx Instructions .ROUTE .COMPLEX Qty: 100 1RF Dose Instruction: USE STRIP TO CHECK GLUCOSE TWICE DAILY Rx Instructions: USE STRIP TO CHECK GLUCOSE TWICE DAILY; metformin 500 mg tablet extended release 24 hr 1,000 mg PO BID Qty: 360 1RF lisinopril 10 mg tablet See Rx Instructions .ROUTE .COMPLEX Qty: 90 2RF Dose Instruction: Take 1 tablet by mouth once daily Rx Instructions: Take 1 tablet by mouth once daily glimepiride 2 mg tablet 2 mg PO QAM Qty: 90 1RF rosuvastatin 20 mg tablet See Rx Instructions .ROUTE .COMPLEX Qty: 90 2RF Dose Instruction: Take 1 tablet by mouth once daily Rx Instructions: Take 1 tablet by mouth once daily Jardiance 25 mg tablet 25 mg PO DAILY Qty: 90 1RF semaglutide 2 mg/dose (8 mg/3 mL) pen injector 2 mg subcut WEEKLY Qty: 3 1RF Rx Instructions: for 4 weeks - DOSE INCREASE 01/12/25 Other Ambulatory Orders: CA holter monitor 3-7 day (Routine) Timeframe: 3 Days Location: Determined by Patient Ordered By: Aristeo [place] Follow-up/Referrals: Bryan Acharya DO [Physician, Cardiology] Guillermina Pandya PA-C [Primary Care Provider, Family Practice]
[2025-01-29 22:59] LABS: Hematocrit 45.4 % (42.0-52.0); Hemoglobin 15.2 g/dL (14.0-18.0); Immature Granulocyte Percent A 0.4 % (0-0.5); Lymphocytes Absolute Auto 1.27 K/mm3 (0.9-3.2); Mean Corpuscular HGB Conc 33.5 g/dl (32-36); Mean Corpuscular Hemoglobin 29.4 pg (26-34); Mean Corpuscular Volume 87.8 fl (80-100); Nucleated Red Blood Cells Absolute Auto 0.000 K/mm3 (0.0-0.012); Nucleated Red Blood Cells Perc 0.0 % (0.0-0.2); Platelet Count Result 297 k/mm3 (150-375); Red Blood Count 5.17 M/mm3 (4.6-6.20); White Blood Count 8.1 K/mm3 (4.5-10.0)
[2025-01-29 23:08] VITALS: PULSE 82
[2025-01-29 23:18] LABS: Alanine Aminotransferase 72 U/L (6-50); Albumin Level 4.5 g/dL (3.5-5.1); Alkaline Phosphatase 50 U/L (38-126); Anion Gap 8 mmol/L (4-12); Aspartate Amino Transferase 64 U/L (17-59); Bilirubin,Total 0.6 mg/dL (0.2-1.3); Blood Urea Nitrogen 14 mg/dL (9-20); Calcium 9.4 mg/dL (8.4-10.2); Carbon Dioxide 27 mmol/L (22-30); Chloride 104 mmol/L (98-107); Estimated CRCL calculation 73 ml/min; Estimated Glomerular Filt Rate > 60; Glucose 148 mg/dL (65-110); Potassium 4.0 mmol/L (3.4-5.0); Sodium 139 mmol/L (137-145); Total Protein 7.4 g/dL (6.3-8.2)
[2025-01-29 23:23] LABS: Magnesium 2.0 mg/dL (1.6-2.3)
[2025-01-29 23:26] VITALS: BP 166/74; PULSE 76; RESP 15; O2SAT 99
[2025-01-29 23:36] LABS: Troponin I 0.019 ng/mL (0.000-0.034)
--- NOTE | 2025-01-29 23:41 | PC.NURSE ---
pt states he is feeling better and wishes to go home. EDP made aware
--- NOTE | 2025-01-30 01:45 | ECG_ITS ---
Test Date: 2025-01-30 02:11:43 Measurements Intervals [place] Rate: 71 P: 0 VA: 0 QRS: -68 QRSD: 142 T: 48 QT: 393 QTc: 430 Interpretive Statements SINUS RHYTHM WITH FIRST DEGREE AV BLOCK LEFT AXIS DEVIATION RIGHT BUNDLE BRANCH BLOCK LEFT VENTRICULAR HYPERTROPHY WITH ST-T CHANGE CONSIDER INFERIOR INFARCT, AGE INDETERMINATE BASELINE ARTIFACT- I, II, III, AVR, AVL, AVF, V1-V2 ABNORMAL ECG Compared to ECG 01/29/2025 22:12:44 NO SIGNIFICANT CHANGE Electronically Signed On 01-30-2025 08:16:28 CDT by Bryan Acharya D.O.
[2025-01-30 02:15] VITALS: BP 154/72; PULSE 72; RESP 16; O2SAT 100
[2025-01-30 02:33] LABS: Troponin I 0.019 ng/mL (0.000-0.034)
[2025-01-30 03:27] VITALS: BP 160/76; PULSE 75; RESP 18; O2SAT 99
[2025-01-30 03:41] VITALS: BP 160/76; PULSE 75; RESP 18; O2SAT 99
== END 2025-01-30 03:44 | disposition home or self-care (01) ==
PROVIDERS: Emergency Provider Student in an Organized Health Care Education/Training Program; PCP Physician Assistant Medical
DX: R55 Syncope and collapse (principal); I10 Essential (primary) hypertension; I25.10 Atherosclerotic heart disease of native coronary artery without angina pectoris; E11.319 Type 2 diabetes mellitus with unspecified diabetic retinopathy without macular edema; E11.51 Type 2 diabetes mellitus with diabetic peripheral angiopathy without gangrene; E11.21 Type 2 diabetes mellitus with diabetic nephropathy; E78.5 Hyperlipidemia, unspecified; Z85.46 Personal history of malignant neoplasm of prostate; Z87.891 Personal history of nicotine dependence; I44.0 Atrioventricular block, first degree; I45.2 Bifascicular block; I51.7 Cardiomegaly; R94.31 Abnormal electrocardiogram [ECG] [EKG]; Z79.899 Other long term (current) drug therapy; Z79.84 Long term (current) use of oral hypoglycemic drugs; Z79.85 Long-term (current) use of injectable non-insulin antidiabetic drugs
CPT/HCPCS: 36415; 70450; 70486; 71046; 72125; 80053; 83735; 84484; 85025; 85380; 93005; 99284